=== PATIENT | female | born 2000 | race Caucasian/White ===

== ENCOUNTER 2025-08-31 13:50 | Day surgery (SDC) | payer OTHER ==
[2025-08-31] MEDS ORDERED: hydrALAZINE 20 MG/ML VIAL SLOW IVP PRN (15:08)
== END 2025-08-31 15:38 | disposition home or self-care (01) ==
LOC: CSHLD/OP 13:50
PROVIDERS: ATTEND Obstetrics & Gynecology
DX: Z03.79 Encounter for other suspected maternal and fetal conditions ruled out (principal); O99.213 Obesity complicating pregnancy, third trimester; Z3A.30 30 weeks gestation of pregnancy; Z87.891 Personal history of nicotine dependence; Z67.20 Type B blood, Rh positive
CPT/HCPCS: 87480; 87510; 87660